=== PATIENT | female | born 1975 | race Caucasian/White ===

== ENCOUNTER 2018-09-26 14:42 | Emergency (ER) | payer OTHER ==
[2018-09-26 15:01] VITALS: BP 127/77; PULSE 98; TEMP 98.3; BMI 31.9
--- NOTE | 2018-09-26 15:43 | PDOC ---
Attending Attestation - Resident Resident Name: Ramiro Pina - ED Attending Attestation I have performed the following: I have examined & evaluated the patient, The case was reviewed & discussed with the resident, I agree w/resident's findings & plan, Exceptions are as noted - HPI HPI: 09/26/18 16:13 42y F no signfiicant pmhx presents for evaluation of possible allergic reaction. The patient states she was well this morninguntil around 1pm, had a lunch of eggs, sausage, banana, and felt itching in her mouth and a sensation of swelling in her throat, she notes her voice was normal at the time, she looked in a mirror and didnt see any obvious swelling. she went to urgent care and was given epinephrine IM, solumedrol and benadryl. She notes that after the epi, she started feeling chest itghtness, palpitations, a raspy voice, and jittery. She notes she feels better now. notes she had the same symptoms last year after eating tunafish, had gone to allergy and was tested and everything was normal except for a rare narcotic medication she was not given a name to. she still abstains from eating what caused it in the first place. she did nto have any new exposures today and has had the foods many times before. notes she has been scoped by ENT in the past and noted some nodules int he throat/vocal cords. - Physicial Exam PE: 09/26/18 17:09 GENERAL: The patient is awake, alert, and fully oriented, Nontoxic - in no acute distress. HEAD: Normocephalic, atraumatic. EYES: extraocular movements intact, sclera anicteric, conjunctiva clear. ENT: Normal voice, Moist mucous membranes., Posterior pharynx widely patent,no stridor, NECK: Normal range of motion, supple LUNGS: Breath sounds equal, clear to auscultation bilaterally. No wheezes, no rhonchi, no rales. HEART: Regular rate and rhythm, normal S1 and S2 without murmur, rub or gallop. ABDOMEN: Soft, nontender, normoactive bowel sounds. No guarding, no rebound. . No CVA tenderness EXTREMITIES: Normal range of motion, no edema. No clubbing or cyanosis. No cords, erythema, or tenderness. NEUROLOGICAL: No facial assymetry, Normal speech, PSYCH: Normal mood, normal affect. SKIN: Warm, Dry, normal turgor, - Medical Decision Making 09/26/18 17:17 suspect possible allergic reaction s/p epi, solumedrol, benadryl no airway compromise currently will continue to observe in the ED for 6-7 hrs (unitl 8pm) 09/26/18 19:15 pt doing well will obs for another hr if feeling well los dc with allergy fu
--- NOTE | 2018-09-26 16:08 | PDOC ---
History of Present Illness - General Chief Complaint: Allergic Reaction Stated Complaint: ALLERGIC REACTION Time Seen by Provider: 09/26/18 15:02 History Source: Patient Exam Limitations: No Limitations - History of Present Illness Initial Comments: 42 yo F w no sig pmh [facility] after eating a banana and experiencing an allergic reaction where she felt like her throat was swelling up. She denies experiencing shortness of breath, tongue or lip swelling at any point. She also denies any rashes and denies having a hx of severe allergic reactions from anything other than fish. She says she has never experienced anaphylaxis. She states she received Epi, solumedrol and benadryl over at [facility] and now she feels much better and has no concerns. She denies any recent fevers, chills, infections. Denies new allergen exposures. Denies headache, blurry vision, neck pain, abdominal pain, diarrhea or constipation. Denies chest pain. PCP: Amy Belcher at [facility] Hx: Denies alcohol, drugs, or tabacco PSH: None reported Allergies: Tuna oil Past History - Past Medical History Allergies/Adverse Reactions: Allergies Allergy/AdvReac Type Severity Reaction Status Date / Time tuna oil Allergy Verified 09/26/18 14:57 Home Medications: Ambulatory Orders Paroxetine HCl [Paxil] 20 mg PO DAILY 09/26/18 COPD: No Psychiatric Problems: Yes - Suicide/Smoking/Psychosocial Hx Smoking History: Never smoked Review of Systems - Review of Systems Able to Perform ROS?: Yes Comments:: CONSTITUTIONAL: Absent: fever, no chills, no fatigue EYES: Absent: visual changes ENT: Present: Swollen throat Absent: ear pain CARDIOVASCULAR: Absent: chest pain, no palpitations RESPIRATORY: Absent: cough, no SOB GI: Absent: abdominal pain, no nausea, no vomiting, no constipation, no diarrhea GENITOURINARY: Absent: dysuria, no frequency, no hematuria MUSKULOSKELETAL: Absent: back pain, no arthralgia, no myalgia SKIN: Absent: rash NEURO: Absent: headache *Physical Exam - Vital Signs Last Vital Signs Temp Pulse Resp BP Pulse Ox 98.3 F 98 H 18 127/77 100 09/26/18 14:57 09/26/18 14:57 09/26/18 14:57 09/26/18 14:57 09/26/18 14:57 - Physical Exam Comments: GENERAL: Well-appearing, well-nourished. No apparent distress. HEENT: Normocephalic, atraumatic. PERRL, EOM intact. Oropharynx is clear. CARDIOVASCULAR: Normal S1, S2. Regular rate and rhythm. PULMONARY: No evidence of respiratory distress. Lungs clear to auscultation bilaterally. No wheezing, rales or rhonchi. ABDOMEN: Soft, non-distended, non-tender. EXTREMITIES: Normal ROM in all four extremities. No gross deformities. SKIN: Warm, dry. No rash NEUROLOGICAL: No focal neurological deficits. Moderate Sedation - Procedure Monitoring Vital Signs: Procedure Monitoring Vital Signs Temperature 98.3 F 09/26/18 14:57 Pulse Rate 98 H 09/26/18 14:57 Respiratory Rate 18 09/26/18 14:57 Blood Pressure 127/77 09/26/18 14:57 O2 Sat by Pulse Oximetry (%) 100 09/26/18 14:57 Medical Decision Making - Medical Decision Making 42 yo F w no sig pmh presents [facility] ER [facility] after eating a banana and experiencing an allergic reaction where she felt like her throat was swelling up. She denies experiencing shortness of breath, tongue or lip swelling at any point. She also denies any rashes and denies having a hx of severe allergic reactions from anything other than fish. She says she has never experienced anaphylaxis. She states she received Epi, solumedrol and benadryl over at [facility] and now she feels much better and has no concerns. - VSS DDx IBNLT: Allergic reaction vs angioedema vs anaphylaxis - patient already received epi, benadryl, and steroids. Plan: Watchful waiting to see if she continues to improve, +/- steroids course as outpatient. *DC/Admit/Observation/Transfer Diagnosis at time of Disposition: Allergic reaction - Discharge Dispostion Disposition: HOME Condition at time of disposition: Improved Decision to Admit order: No - Referrals Referrals: ON STAFF,NOT [Primary Care Provider] - - Patient Instructions Printed Discharge Instructions: DI for Eye Allergic Reaction, DI for Adverse Drug Reaction -- Allergic Additional Instructions: You came into the ER after an allergic reaction. We believe the steroids you received along with the epi and benadryl prevented your allergy from getting worse. It is important to call up an kiln door repairer and dynamite cartridge crimper to schedule an appointment to figure out what caused your allergy. Come back to the ER if you experience any shortness of breath, tongue or lip swelling, abdominal pain, fever, lightheadedness, or any other new or worsening concerns. Thank you for coming to the [facility] ER. We hope you feel better soon! Print Language: KINYARWANDA - Post Discharge Activity
--- NOTE | 2018-09-26 19:30 | PDOC ---
*Physical Exam - Vital Signs Last Vital Signs Temp Pulse Resp BP Pulse Ox 98.3 F 98 H 18 127/77 100 09/26/18 14:57 09/26/18 14:57 09/26/18 14:57 09/26/18 14:57 09/26/18 14:57 *DC/Admit/Observation/Transfer Diagnosis at time of Disposition: Allergic reaction - Discharge Dispostion Disposition: HOME Condition at time of disposition: Improved - Prescriptions Prescriptions: EPINEPHrine [Epinephrine] 0.3 mg IJ PRN #1 auto.injct predniSONE [Deltasone -] 40 mg PO DAILY #8 tablet - Referrals Referrals: ON STAFF,NOT [Primary Care Provider] - - Patient Instructions Printed Discharge Instructions: DI for Eye Allergic Reaction, DI for Adverse Drug Reaction -- Allergic Additional Instructions: You came into the ER after an allergic reaction. We believe the steroids you received along with the epi and benadryl prevented your allergy from getting worse. It is important to call up an windows administrator and director retail brand development to schedule an appointment to figure out what caused your allergy. Come back to the ER if you experience any shortness of breath, tongue or lip swelling, abdominal pain, fever, lightheadedness, or any other new or worsening concerns. Thank you for coming to the [facility] ER. We hope you feel better soon! Print Language: MACEDONIAN - Post Discharge Activity
== END 2018-09-26 20:53 | disposition home or self-care (01) ==
LOC: JER 14:42
DX: T78.40XA Allergy, unspecified, initial encounter (principal)
CPT/HCPCS: 99281-25